=== PATIENT | male | born 1980 | race American Indian/Alaskan Native ===

== ENCOUNTER 2019-01-05 10:17 | Emergency (ER) | payer OTHER ==
--- NOTE | 2019-01-05 11:35 | Emergency Department Report ---
ED General Adult HPI - General Chief complaint: Headache Stated complaint: DIZZY/HEADACHES Time Seen by Provider: 01/05/19 11:35 Source: patient Mode of arrival: Ambulatory Limitations: No Limitations - History of Present Illness Initial comments: 38-year-old -[place] male presents to the emergency room stating that the room is spinning and has a headache. Patient reports that he try taking Excedrin on Tuesday but that what sparked his headache. Patient places had a decrease in appetite. Patient reports that the headache is frontal Center. Patient reports breathed some nausea but no vomiting. Patient has taken nothing else to relieve his headache. Patient does admit to having a runny nose and nasal congestion and he reports he has symptoms of a cold 2 weeks ago. Patient denies any head trauma. Onset/Timin Location: head Severity scale (0 -10): 8 Quality: aching Consistency: intermittent Improves with: none Worsens with: movement Associated Symptoms: loss of appetite, nausea/vomiting (nausea no vomiting). denies: fever/chills Treatments Prior to Arrival: none - Related Data Previous Rx's Medication Instructions Recorded Last Taken Type Ibuprofen [Motrin] 800 mg PO Q8HR PRN #15 tablet 06/10/18 Unknown Rx Meclizine [Antivert] 25 mg PO TID PRN #15 tablet 01/05/19 Unknown Rx Allergies Allergy/AdvReac Type Severity Reaction Status Date / Time No Known Allergies Allergy Verified 06/10/18 05:41 ED Review of Systems ROS: Stated complaint: DIZZY/HEADACHES Other details as noted in HPI Comment: All other systems reviewed and negative ENT: congestion, other (rhinorrhea) Gastrointestinal: nausea. denies: vomiting Neurological: headache ED Past Medical Hx - Past Medical History Previous Medical History?: No - Surgical History Past Surgical History?: Yes Additional Surgical History: Hernia repair - Social History Smoking Status: Never Smoker Substance Use Type: None - Medications Home Medications: Home Medications Medication Instructions Recorded Confirmed Last Taken Type Ibuprofen [Motrin] 800 mg PO Q8HR PRN #15 tablet 06/10/18 Unknown Rx Meclizine [Antivert] 25 mg PO TID PRN #15 tablet 01/05/19 Unknown Rx ED Physical Exam - General Limitations: No Limitations General appearance: alert, in no apparent distress - Head Head exam: Present: atraumatic, normocephalic - Eye Eye exam: Present: normal appearance, PERRL, EOMI - ENT ENT exam: Present: mucous membranes moist, TM's normal bilaterally - Neck Neck exam: Present: normal inspection, full ROM - Back Exam Back exam: Present: normal inspection - Neurological Exam Neurological exam: Present: alert, oriented X3, normal gait - Expanded Neurological Exam Expanded Cranial nerves: EOM's Intact: Normal, Gag Reflex: Normal, Tongue Deviation: Normal, Nystagmus: Normal, Facial Sensation: Normal, Facial Palsy with Forehead Movement: Normal, Facial Palsy without Forehead Movement: Normal Cerebellar function: Finger to Nose: Normal, Heel to Edgar: Normal, Romberg: Normal Upper motor neuron: Joey Neglect: Normal, Pronator Drift: Normal, Babinski Sign: Normal, Sensory Extinction: Normal Sensory exam: Upper Extremity Light Touch: Normal, Upper Extremity Pin Prick: Normal, Upper Extremity Temperature: Normal, UE 2 Point Discrimination: Normal, Lower Extremity Light Touch: Normal, Lower Extremity Pin Prick: Normal, Lower Extremity Temperature: Normal, LE 2 Point Discrimination: Normal Motor strength exam: RUE: 4, LUE: 4, RLE: 4, LLE: 4 Best Eye Response (Alexandr): (4) open spontaneously Best Motor Response (Alexandr): (6) obeys commands Best Verbal Response ([place]): (5) oriented Alexandr Total: 15 - Psychiatric Psychiatric exam: Present: normal affect, normal mood - Skin Skin exam: Present: warm, dry, intact, normal color. Absent: rash ED Course Vital Signs 01/05/19 10:28 Temperature 97.9 F Pulse Rate 71 Respiratory 18 Rate Blood Pressure 152/94 [Left] O2 Sat by Pulse 100 Oximetry ED Medical Decision Making - Medical Decision Making 38-year-old male comes in for vertigo-like symptoms. Patient will be given Antivert 25 mg now. Patient's given by mouth challenge. Patient be discharged home on Antivert and to follow up with his primary care provider if the symptoms persist or gets worse. Critical care attestation.: If time is entered above; I have spent that time in minutes in the direct care of this critically ill patient, excluding procedure time. ED Disposition Clinical Impression: Vertigo Disposition: DC-01 TO HOME OR SELFCARE Is pt being admited?: No Does the pt Need Aspirin: No Condition: Stable Instructions: Vertigo (ED) Additional Instructions: Please take medication as prescribed. If his symptoms persist or gets worse please follow-up with the primary care provider. Prescriptions: Meclizine [Antivert] 25 mg PO TID PRN #15 tablet PRN Reason: Vertigo Referrals: [place] NAJERA MD [Primary Care Provider] - 3-5 Days ROSELIA ALFONSO MD [Staff Physician] - 3-5 Days Forms: Work/School Release Form(ED)
[2019-01-05] MEDS ORDERED: ANTIVERT PO ONE (12:04)
[2019-01-05 13:25] VITALS: BP 145/98
== END 2019-01-05 13:24 | disposition home or self-care (01) ==
LOC: ED 10:17
DX: R42 Dizziness and giddiness (principal)
CPT/HCPCS: 99282